=== PATIENT | male | born 1985 | race Caucasian/White ===

== ENCOUNTER 2023-01-28 13:44 | Emergency (ER) | payer MEDICAID, SELFPAY ==
[2023-01-28] VITALS (7 sets, daily range): BP systolic 120–133; BP diastolic 66–72; PULSE 86–107; RESP 17–18; TEMP 36.4–36.7; O2SAT 98–100
--- NOTE | 2023-01-28 13:43 | ECG_ITS ---
APPROVED REPORT Exam: Resting ECG HR:92 bpm ECG Measurements Heart Rate 92 AXES OK 111 P 76 QRSd 120 QRS 60 QT 385 T 55 QTc 434 Conclusion SINUS RHYTHM WITH SINUS ARRHYTHMIA WITH SHORT OK INTERVAL INDETERMINATE AXIS MODERATE INTRAVENTRICULAR CONDUCTION DELAY [110+ ms QRS DURATION] BORDERLINE ECG UNCONFIRMED REPORT Electronically signed by : Nav Campos MD 01/29/2023 17:21:15
--- NOTE | 2023-01-28 14:29 | [facility].EDGENADL ---
Discharge Plan Disposition Patient Disposition: Home, Self-Care Prescriptions Prescriptions: No Action penicillin V potassium 250 MG tablet 500 mg PO TID 3 Days Qty: 20 0RF Referrals Follow up/Referrals: Provider,Referral, [Primary Care Provider] - See instructions Daniel Oseguera DO [Staff Physician] - See instructions Activity Restrictions/Add. Instructions Additional Instructions/Restrictions: Please follow-up with Dr. Oseguera as soon as possible for further evaluation of possible diagnosis of diabetes and recent diagnosis of a near syncopal episode. I would recommend you get an outpatient Holter monitor and possibly an outpatient echo to evaluate for structural heart disease and further electrical abnormalities. Overall other than an elevated blood sugar in the emergency department your evaluation was unremarkable. Return with any worsening symptoms. Clinical Impressions Clinical Impression: Near syncope, Hyperglycemia, Acute dehydration Discharge ED Provider: Delma Gonzalez General Adult HPI General Chief complaint: Chest Pain Stated complaint: CP Time Seen by Provider: 01/28/23 14:24 Mode of Arrival: EMS Source of Information: Patient Limitations: No Limitations Description of Symptoms (Recalled from ER Triage Doc. by RN): Presents to ED with c/o chest tighteness, SOA, and felt like he was going to pass out approx. 30 min [employer]. Denies cardiac hx. Patient reports having a similar episode at 2300 last night with light headedness that resolved prior to going to bed. Denies any meds [employer]. History of Present Illness HPI narrative: Patient is a 37-year-old male with a history of hepatitis B on chronic treatment no other medical problems presented today with near syncope. States he had 2 episodes in the last 24 hours where he got lightheaded had some shortness of breath and chest tightness felt like he was in a pass out and his symptoms resolved spontaneously. He denies any symptoms at the moment. States he feels good. No nausea vomiting diarrhea or changes in medications. No family history of sudden cardiac or at young ages for unknown reasons. Related Data Previous Rx's Medication Instructions Recorded penicillin V potassium 250 mg 500 mg PO TID 3 days #20 tabs 03/10/19 tablet Allergies Allergy/AdvReac Type Severity Reaction Status Date / Time No Known Allergies Allergy Verified 03/10/19 13:39 [facility] Disclaimer: The information contained in this section may have been updated after the patient was seen, as this information can be updated by other users. Social History Smoking Status: Current every day smoker alcohol intake: current substance use type: marijuana, opiates and inhalants current occupational status: employed Travel in the last 8 weeks: None ROS Obtained: Yes All systems reviewed & no additional complaints except as documented Physical Exam General General appearance: alert Respiratory Respiratory exam: Present normal lung sounds bilaterally; Absent respiratory distress Cardiovascular Cardiovascular exam: Present regular rate; Absent tachycardia Abdominal Exam Abdominal exam: Present soft; Absent distention or tenderness Neurological Exam Neurological exam: Present alert and oriented X3 Medical Decision Making [place] Inquiry Pt receiving controlled substance: No Vital Signs: 01/28/23 13:44 01/28/23 13:48 Temperature 97.5 F L Temperature Source Oral Pulse Rate 92 H Pulse Rate [Right] 89 Respiratory Rate 18 Blood Pressure [Right Arm] 120/66 Blood Pressure Mean [Right Arm] 84 Blood Pressure Source [Right Arm] Automatic Cuff Blood Pressure Position [Right Arm] Sitting 02 Sat by Pulse Oximetry 100 Oxygen Delivery Method Room Air Lab Data Lab results reviewed: Yes I reviewed the patient's lab results. Lab Results 01/28/23 14:15: WBC 5.6, RBC 5.56, Hgb 15.9, Hct 47.8, MCV 85.9, MCH 28.5, MCHC 33.2, RDW 13.1, Plt Cou
[2023-01-28 14:41] LABS: Basophils % 0.4 % (0.1-2.0); Chloride 102 mmol/L (98-107); Eosinophils % 0.6 % (0.1-12.0); Hematocrit 47.8 % (42.0-52.0); Hemoglobin 15.9 g/dL (14.1-18.0); Lymphocytes # 1.2 K/mm3 (0.7-4.5); Lymphocytes % 21.1 % (10-50); Mean Corpuscular HGB Conc 33.2 g/dL (31.8-35.4); Mean Corpuscular Hemoglobin 28.5 pg (27.0-31.2); Mean Corpuscular Volume 85.9 fl (80-94); Mean Platelet Volume 8.1 fl (7.4-10.4); Monocytes # 0.2 K/mm3 (0.1-1.0); Monocytes % 3.5 % (1.7-9.3); Neutrophils # 4.2 K/mm3 (1.8-7.8); Neutrophils % 74.4 % (37.0-80.0); Platelet Count 221 K/mm3 (142-424); Potassium 3.3 mmoL/L (3.5-5.1); Red Blood Count 5.56 M/mm3 (4.60-6.20); Red Cell Distribution Width 13.1 % (11.5-17.5); Sodium 137 mmol/L (136-145); White Blood Count 5.6 K/mm3 (4.8-10.8)
[2023-01-28 14:43] LABS: Alanine Aminotransferase 38 U/L (12-78); Aspartate Amino Transferase 41 U/L (17-59); Blood Urea Nitrogen 18 mg/dl (9-20); Creatinine Clearance Estimated 12 mL/min (50-200); Estimated Glomerular Filt Rate 128 ml/min (>60); GFR (African American) 155 ML/MIN (>60)
[2023-01-28 14:44] LABS: Albumin Level 4.2 g/dl (3.5-5.0); Albumin/Globulin Ratio 1.1 (1.1-1.8); Alkaline Phosphatase 78 U/L (38-126); Anion Gap 18.3 mEq/L (5-15); Calcium 9.5 mg/dl (8.4-10.2); Carbon Dioxide 20 mmol/L (22.0-30.0); Globulin 3.8 g/dL (1.3-3.2); Glucose 215 mg/dl (74-100)
[2023-01-28 14:57] LABS: Troponin I < 0.01 ng/ml (0.00-0.034)
--- NOTE | 2023-01-28 15:13 | PC.NURSE ---
Rounded on patient; call baumann within reach
--- NOTE | 2023-01-28 15:51 | PC.NURSE ---
rounded on pt he needed to use the restroom unhooked him from data machine call light at bs
== END 2023-01-28 16:22 | disposition home or self-care (01) ==
PROVIDERS: Student in an Organized Health Care Education/Training Program; Emergency Provider Emergency Medicine
DX: R07.9 Chest pain, unspecified (principal); R55 Syncope and collapse; E86.0 Dehydration; R73.9 Hyperglycemia, unspecified; B19.10 Unspecified viral hepatitis B without hepatic coma; F17.200 Nicotine dependence, unspecified, uncomplicated
CPT/HCPCS: 80053; 84484; 85025; 93005; 96360; 99285